=== PATIENT | male | born 1950 | race Caucasian/White ===

== ENCOUNTER 2018-01-27 15:35 | Emergency (ER) | payer OTHER, MEDICARE, BC ==
[2018-01-27 15:55] VITALS: BMI 27.1
[2018-01-27] MEDS ORDERED: ACETAMINOPHEN 1000 MG/100 ML VIAL (NON FORMULARY) IVPB ONE (17:05)
[2018-01-27] MEDS ORDERED: METOCLOPRAMIDE HCL INJECTION 10 MG/2 ML VIAL IVPB ONE (17:05)
[2018-01-27] MEDS ORDERED: SODIUM CHLORIDE 1,000 ML IV STA ×2 (17:05→18:45)
[2018-01-27 17:26] LABS: URINE APPEARANCE CLEAR; URINE BILIRUBIN NEGATIVE (<2.0 mg/dL); URINE COLOR YELLOW; URINE GLUCOSE (UA) NEGATIVE (NEGATIVE); URINE KETONE NEGATIVE (NEGATIVE); URINE LEUK ESTERASE NEGATIVE (NEGATIVE); URINE NITRITE NEGATIVE (NEGATIVE)
[2018-01-27] MEDS ORDERED: METOCLOPRAMIDE HCL INJECTION 10 MG/2 ML VIAL ONE (17:26)
[2018-01-27] MEDS ORDERED: ACETAMINOPHEN INJECTION 100 ML IVPB ONE (17:26)
[2018-01-27 17:43] LABS: URINE PROTEIN 1+ (NEGATIVE)
[2018-01-27 17:45] LABS: URINE MUCUS RARE
--- NOTE | 2018-01-27 17:46 | PDOC ---
History of Present Illness - History of Present Illness Initial Comments: 01/27/18 18:18 "The patient is a year 67 old male with a significant PMH of asthma, HPL ,COPD, CAD, and melanoma who presents to the emergency department with diffuse body aches and for 3 days. Pt reports pain in his bilateral shoulders and neck, as well as his legs. He also reports severe fatigue and subjective fevers at home. He denies N/V/D. Denies CP/SOB. The patient also reports experiencing associated headache with his other symptoms. Denies neck stiffness. Denies thunderclap. He denies any numbness, weakness, or tingling sensation in his extremities. Denies sick contacts. PCP: Dr. Dallas " <Dylan Álvarez - Last Filed: 01/27/18 18:46> <Camila Rizvi - Last Filed: 01/27/18 20:48> - General Chief Complaint: Pain Stated Complaint: PAIN/WEAKNESS Time Seen by Provider: 01/27/18 16:32 Past History - Past Medical History Anemia: No Asthma: Yes Cancer: Yes (melenoma face, l knee, behind r knee) Cardiac Disorders: Yes (r+l bundle branch block) CVA: No COPD: Yes CHF: No Dementia: No Diabetes: No GI Disorders: Yes (reflux) Disorders: No HTN: No Hypercholesterolemia: Yes Liver Disease: No Seizures: No Thyroid Disease: No - Surgical History Abdominal Surgery: No Appendectomy: Yes Cardiac Surgery: Yes (Pacemaker) Cholecystectomy: No Lung Surgery: No Neurologic Surgery: No (laminectomy L5-S1, LAMINECTOMY L4) Orthopedic Surgery: Yes (r knee arthroscopy) - Immunization History Immunization Up to Date: No - Suicide/Smoking/Psychosocial Hx Smoking History: Former smoker Have you smoked in the past 12 months: No If you are a former smoker, when did you quit?: 1996 Information on smoking cessation initiated: No Hx Alcohol Use: Yes (SOCIALLY) Drug/Substance Use Hx: No Substance Use Type: Alcohol Hx Substance Use Treatment: No <Dylan Álvarez - Last Filed: 01/27/18 18:46> <Camila Rizvi - Last Filed: 01/27/18 20:48> - Past Medical History Allergies/Adverse Reactions: Allergies Allergy/AdvReac Type Severity Reaction Status Date / Time Sulfa (Sulfonamide Allergy Rash Verified 01/27/18 15:52 Antibiotics) [Sulfa(Sulfonamide Antibiotics)] Home Medications: Ambulatory Orders Aspirin [ASA -] 81 mg PO DAILY 05/29/12 Tamsulosin HCl 0.4 mg PO HS 05/29/12 Zolpidem Tartrate [Ambien] 10 mg PO HS 05/29/12 oxyCODONE HCL [Roxicodone -] 15 mg PO BID PRN 05/29/12 Atorvastatin Ca [Lipitor] 20 mg PO HS 08/07/12 Celecoxib [Celebrex] 100 mg PO HS 08/07/12 Pregabalin [Lyrica] 100 mg PO HS 08/07/12 Review of Systems - Review of Systems Comments:: 01/27/18 18:25 "GENERAL/CONSTITUTIONAL: (+)fever . No chills. No weakness. HEAD, EYES, EARS, NOSE AND THROAT: No change in vision. No ear pain or discharge. No sore throat. CARDIOVASCULAR: No chest pain, shortness of breath. RESPIRATORY: No cough, wheezing, or hemoptysis. GASTROINTESTINAL: No nausea or vomiting, diarrhea or constipation. GENITOURINARY: No dysuria, frequency, or change in urination. MUSCULOSKELETAL:(+)back pain, neck pain, bodyaches SKIN: No rash NEUROLOGIC: (+)headache. No vertigo, loss of consciousness, or change in strength/sensation. ENDOCRINE: No increased thirst. No abnormal weight change. HEMATOLOGIC/LYMPHATIC: No anemia, easy bleeding, or history of blood clots. ALLERGIC/IMMUNOLOGIC: No hives or skin allergy." <Dylan Álvarez - Last Filed: 01/27/18 18:46> *Physical Exam - Vital Signs Last Vital Signs Temp Pulse Resp BP Pulse Ox 100.2 F H 103 H 20 151/69 97 01/27/18 15:53 01/27/18 15:53 01/27/18 15:53 01/27/18 15:53 01/27/18 15:53 - Physical Exam Comments: 01/27/18 18:26 "GENERAL: Awake, alert, and fully oriented, in no acute distress. HEAD: No signs of trauma EYES: PERRLA, EOMI, sclera anicteric, conjunctiva clear ENT: Auricles normal inspection, hearing grossly normal, nares patent, oropharynx clear without exudates. Moist mucosa NECK: No meningismus, Nontender, no stepoffs, Normal ROM, supple, no lymphadenopathy, JVD, or masses LUNGS: Breath sounds equal, clear to auscultation bilaterally. No wheezes, and no crackles HEART: Regular rate and rhythm, normal S1 and S2, no murmurs, rubs or gallops ABDOMEN: Soft, nontender, normoactive bowel sounds. No guarding, no rebound. No masses EXTREMITIES: Normal range of motion, no edema. No clubbing or cyanosis. No cords, erythema, or tenderness NEUROLOGICAL: Cranial nerves II through XII intact. 5/5 strength and sensation in all extremities, Normal speech, normal gait, normal cerebellar function SKIN: Warm, Dry, normal turgor, no rashes or lesions noted. <Dylan Álvarez - Last Filed: 01/27/18 18:46> - Vital Signs Last Vital Signs Temp Pulse Resp BP Pulse Ox 98.9 F 91 H 20 123/58 95 01/27/18 18:10 01/27/18 18:10 01/27/18 18:10 01/27/18 18:10 01/27/18 18:10 <Camila Rizvi - Last Filed: 01/27/18 20:48> ED Treatment Course - LABORATORY CBC & Chemistry Diagram: 01/27/18 17:10 01/27/18 17:10 - ADDITIONAL ORDERS Additional order review: Laboratory Results 01/27/18 17:10 Urine Color Yellow Urine Appearance Clear Urine pH 5.0 Ur Specific [place] 1.019 Urine Protein 1+ H Urine Glucose (UA) Negative Urine Ketones Negative Urine Blood 1+ H Urine Nitrite Negative Urine Bilirubin Negative Urine Urobilinogen 2.0 Ur Leukocyte Esterase Negative - RADIOLOGY Radiology Studies Ordered: Category Date Time Status CHEST PA & LAT [RAD] Stat Radiology 01/27/18 16:57 Taken - Medications Given in the ED: ED Medications Discontinued Medications Generic Name Dose Route Start Last Admin Trade Name Freq PRN Reason Stop Dose Admin Acetaminophen 1,000 mg 01/27/18 17:05 01/27/18 17:31 Ofirmev Injection - IVPB 01/27/18 17:06 1,000 mg ONCE ONE Administration Metoclopramide HCl 10 mg 01/27/18 17:05 01/27/18 17:31 Reglan Injection - IVPB 01/27/18 17:06 10 mg ONCE ONE Administration <Dylan Álvarez - Last Filed: 01/27/18 18:46> - LABORATORY CBC & Chemistry Diagram: 01/27/18 17:10 01/27/18 17:10 - ADDITIONAL ORDERS Additional order review: Laboratory Results 01/27/18 01/27/18 01/27/18 17:10 17:10 17:10 Sodium 137 Potassium 4.1 Chloride 103 Carbon Dioxide 25 Anion Gap 9 BUN 14 Creatinine 1.0 D Creat Clearance w eGFR > 60 Random Glucose 112 H D Lactic Acid 1.8 Calcium 8.8 Total Bilirubin 1.0 AST 45 H D ALT 52 D Alkaline Phosphatase 67 Creatine Kinase 264 Creatine Kinase Index 0.7 CK-MB (CK-2) 1.966 Troponin I < 0.02 Total Protein 7.2 Albumin 3.7 Urine Color Urine Appearance Urine pH Ur Specific [place] Urine Protein Urine Glucose (UA) Urine Ketones Urine Blood Urine Nitrite Urine Bilirubin Urine Urobilinogen Ur Leukocyte Esterase Urine WBC (Auto) Urine RBC (Auto) Urine Mucus 01/27/18 17:10 Sodium Potassium Chloride Carbon Dioxide Anion Gap BUN Creatinine Creat Clearance w eGFR Random Glucose Lactic Acid Calcium Total Bilirubin AST ALT Alkaline Phosphatase Creatine Kinase Creatine Kinase Index CK-MB (CK-2) Troponin I Total Protein Albumin Urine Color Yellow Urine Appearance Clear Urine pH 5.0 Ur Specific [place] 1.019 Urine Protein 1+ H Urine Glucose (UA) Negative Urine Ketones Negative Urine Blood 1+ H Urine Nitrite Negative Urine Bilirubin Negative Urine Urobilinogen 2.0 Ur Leukocyte Esterase Negative Urine WBC (Auto) <1 Urine RBC (Auto) 5 Urine Mucus Rare 01/27/18 17:10 Influenza Types A,B Antigen - Final Nasopharyngeal Swab - Final 01/27/18 17:10 RBC 5.82 H MCV 84.0 MCHC 33.7 RDW 14.1 MPV 8.4 Neutrophils % 70.1 Lymphocytes % 13.7 Monocytes % 15.1 H Eosinophils % 0.1 D Basophils % 1.0 - Medications Given in the ED: ED Medications Discontinued Medications Generic Name Dose Route Start Last Admin Trade Name Freq PRN Reason Stop Dose Admin Acetaminophen 1,000 mg 01/27/18 17:05 01/27/18 17:31 Ofirmev Injection - IVPB 01/27/18 17:06 1,000 mg ONCE ONE Administration Sodium Chloride 1,000 mls @ 1,000 mls/hr 01/27/18 17:05 01/27/18 17:30 Normal Saline - IV 01/27/18 18:04 1,000 mls/hr ASDIR STA Administration Sodium Chloride 1,000 mls @ 1,000 mls/hr 01/27/18 18:45 01/27/18 18:53 Normal Saline - IV 01/27/18 19:44 1,000 mls/hr ASDIR STA Administration Ketorolac Tromethamine 15 mg 01/27/18 18:38 01/27/18 18:44 Toradol Injection - IVPUSH 01/27/18 18:39 15 mg ONCE ONE Administration Metoclopramide HCl 10 mg 01/27/18 17:05 01/27/18 17:31 Reglan Injection - IVPB 01/27/18 17:06 10 mg ONCE ONE Administration <Camila Rizvi - Last Filed: 01/27/18 20:48> Medical Decision Making - Medical Decision Making 01/27/18 17:46 67 M with fevers and bodyaches x 3 days. Likely viral syndrome vs influenza. Will r/o PNA and UTI, though less likely as pt with no clinical signs of either. Pt awake, alert, with no meningismus on exam. - Labs, cultures - CXR, UA - IVF, tylenol, reglan 01/27/18 18:27 Labs, UA, flu swab negative CXR negative on my read 01/27/18 18:37 Pt reassessed - now states he feels much better. His headache has improved but not resolved completely, and his bodyaches are gone. Vitals now wnl. Pt signed out to oncoming attending at 7PM, pending CT head and re-evaluation. <Dylan Álvarez - Last Filed: 01/27/18 18:46> - Medical Decision Making 01/27/18 20:25 Patient Name: POLLO AVALOS THIS IS A PRELIMINARY REPORT FROM [facility] [employer] [facility] DATE OF SERVICE: 2018-01-27 19:24:03 IMAGES: 149 EXAM: CT head without contrast HISTORY: Headache COMPARISON: None. FINDINGS: There is moderate diffuse cortical atrophy present. There is no acute infarction. There is no hemorrhage. There is no mass lesion. There is no skull fracture is seen. Visualized portions of the paranasal sinuses are essentially clear. 01/27/18 20:26 I received pt on signout. Pt feels great. Came with a fever and headache. Resolved with a dose of antipyretic. Labs normal.CT head and chest normal. Flu culture normal. Pt is ready for discharge. Return for worsening headache or neck stiffness. <Camila Rizvi - Last Filed: 01/27/18 20:48> *DC/Admit/Observation/Transfer <Dylan Álvarez - Last Filed: 01/27/18 18:46> - Discharge Dispostion Decision to Admit order: No <Camila Rizvi - Last Filed: 01/27/18 20:48> Diagnosis at time of Disposition: Viral illness - Discharge Dispostion Disposition: HOME Condition at time of disposition: Improved - Referrals Referrals: Anmol Dallas MD [Primary Care Provider] - - Patient Instructions Printed Discharge Instructions: Common Cold
[2018-01-27 17:47] LABS: EOS % 0.1 % (0-4.5); HEMATOCRIT 48.9 % (35.4-49); HEMOGLOBIN 16.5 GM/dL (11.7-16.9); LYMPH % 13.7 % (8-40); MCH 28.4 pg (25.7-33.7); MCHC 33.7 g/dl (32.0-35.9); MEAN PLT VOLUME 8.4 fl (7.5-11.1); MONO % 15.1 % (3.8-10.2); NEUT % 70.1 % (42.8-82.8); PLATELET COUNT 124 K/MM3 (134-434); RBC 5.82 M/mm3 (4.00-5.60); RDW 14.1 % (11.9-15.9); WHITE BLOOD COUNT 5.7 K/mm3 (4.0-10.0)
[2018-01-27 18:08] LABS: ALBUMIN 3.7 g/dl (3.4-5.0); ANION GAP 9 (8-16); BLOOD UREA NITROGEN 14 mg/dL (7-18); CALCIUM 8.8 mg/dL (8.5-10.1); CHLORIDE 103 mmol/L (98-107); CO2 25 mmol/L (21-32); GLUCOSE,RANDOM 112 mg/dL (74-106); SODIUM 137 mmol/L (136-145)
[2018-01-27 18:11] VITALS: BP 123/58; PULSE 91; TEMP 98.9
[2018-01-27 18:11] LABS: ALK PHOS 67 U/L (45-117); SGPT/ALT 52 U/L (12-78); TOT PROT 7.2 g/dl (6.4-8.2)
[2018-01-27 18:19] LABS: POTASSIUM 4.1 mmol/L (3.5-5.1); SGOT/AST 45 U/L (15-37)
[2018-01-27] MEDS ORDERED: KETOROLAC TROMETHAMINE 30 MG/1 ML VIAL IVPUSH ONE (18:38)
[2018-01-27] MEDS ORDERED: KETOROLAC TROMETHAMINE 15 MG/ML VIAL ONE (18:40)
--- NOTE | 2018-01-28 08:49 | EKG ---
Test Reason : Blood Pressure : / mmHG Vent. Rate : 101 BPM Atrial Rate : 101 BPM P-R Int : 196 ms QRS Dur : 138 ms QT Int : 344 ms P-R-T Axes : 051 -67 098 degrees QTc Int : 446 ms SINUS TACHYCARDIA LEFT AXIS DEVIATION LEFT BUNDLE BRANCH BLOCK ABNORMAL ECG WHEN COMPARED WITH ECG OF 01-AUG-2013 15:02, NO SIGNIFICANT CHANGE WAS FOUND Confirmed by HIPOLITO HENRY MD ([id number]) on 01/28/2018 8:48:54 AM Referred By: Confirmed By:HIPOLITO HENRY MD
== END 2018-01-27 21:16 | disposition home or self-care (01) ==
LOC: JER 15:35
PROC: 3E0333Z Introduction of Anti-inflammatory into Peripheral Vein, Percutaneous Approach (ICD-10-PCS; principal; 2018-01-27)
PROC: 3E033NZ Introduction of Analgesics, Hypnotics, Sedatives into Peripheral Vein, Percutaneous Approach (ICD-10-PCS; 2018-01-27)
PROC: 3E033GC Introduction of Other Therapeutic Substance into Peripheral Vein, Percutaneous Approach (ICD-10-PCS; 2018-01-27)
PROC: 3E0337Z Introduction of Electrolytic and Water Balance Substance into Peripheral Vein, Percutaneous Approach (ICD-10-PCS; 2018-01-27)
DX: B34.9 Viral infection, unspecified (principal); E78.5 Hyperlipidemia, unspecified; I25.10 Atherosclerotic heart disease of native coronary artery without angina pectoris; J45.909 Unspecified asthma, uncomplicated; I45.2 Bifascicular block; K21.9 Gastro-esophageal reflux disease without esophagitis; Z95.0 Presence of cardiac pacemaker; Z87.891 Personal history of nicotine dependence; Z88.2 Allergy status to sulfonamides; Z79.82 Long term (current) use of aspirin; Z85.820 Personal history of malignant melanoma of skin
CPT/HCPCS: 36415; 70450-TC; 71046-TC-FY; 80053; 81003; 81015; 82550; 82553; 83605; 84484; 85025; 87040; 87086; 87804; 93005; 93010; 96361; 96374; 96375; 99283-25; J0131; J7030

== ENCOUNTER 2019-01-18 13:58 | Emergency (ER) | payer OTHER, BC, MEDICARE ==
[2019-01-18 14:19] VITALS: TEMP 97.8; BMI 28.2
[2019-01-18] MEDS ORDERED: ACETAMINOPHEN 1000 MG/100 ML VIAL (NON FORMULARY) IVPB ONE (14:51)
[2019-01-18] MEDS ORDERED: ACETAMINOPHEN INJECTION 100 ML IVPB ONE (14:56)
--- NOTE | 2019-01-18 15:03 | PDOC ---
History of Present Illness - General Chief Complaint: Headache Stated Complaint: WEAKNESS Time Seen by Provider: 01/18/19 14:27 - History of Present Illness Initial Comments: the pt is a 68M w/ a history of previous RBBB & LBBB s/p pacemaker, COPD, BPH, and PUD who presents for evaluation of a SORTO. He states it started this morning at approximately 0500. It is frontal, throbbing, non-radiating, associated with gait instability (w/o fall), and not alleviated by anything he can identify. He states he does not have HAs frequently and has not tried taking anything for this SORTO. He endorses mild SOB which is consistent with his COPD but he states that it does not feel overly exacerbated at this time. He states he currently has said SORTO and continues to feel as though his gait is unstable. Denies changes in vision, chest pain, changes in sensation/strength. Denies abdominal pain, N/V/C/D, dysuria, hematuria, or blood in his stool 01/18/19 14:58 NIH Stroke Scale - Last Known Well Date/Time & Onset Date Last Known Well: 01/17/19 - Initial Evaluation Level of consciousness: Alert Ask patient the month and their age: Answers both correctly Ask patient to open & close eyes; make fist and let go: Obeys both correctly Best gaze (horizontal eye movement): Normal Visual field testing: No visual field loss Facial paresis (Show teeth/raise eyebrows/close eyes tight): Normal symmetrical movement Motor Function: Left Arm: Normal Motor Function: Right Arm: Normal (extends arm 90 (or 45) degrees for 10 seconds without drift Motor Function: Left Leg: Normal (extends leg 30 degrees for 5 seconds without drift) Motor Function: Right Leg: Normal (extends leg 30 degrees for 5 seconds without drift) Limb Ataxia: No ataxia Sensory(Use pinprick test arms,legs,trunk,face/side to side): Normal Best language (Describe picture, name items, read sentences): No Aphasia Dysarthria (read several words): Normal articulation Extinction and Inattention: No abnormality - Total Score NIH Stroke Scale Score: 0 Past History - Past Medical History Allergies/Adverse Reactions: Allergies Allergy/AdvReac Type Severity Reaction Status Date / Time Sulfa (Sulfonamide Allergy Rash Verified 01/18/19 14:13 Antibiotics) [Sulfa(Sulfonamide Antibiotics)] Home Medications: Ambulatory Orders Tamsulosin HCl 0.4 mg PO HS 05/29/12 oxyCODONE HCL [Roxicodone -] 5 mg PO BID PRN 05/29/12 Albuterol 2.5/Ipratropium 0.5 [Duoneb -] 1 neb NEB BID 01/18/19 Lansoprazole [Prevacid -] 30 mg PO DAILY 01/18/19 Metoprolol Tartrate [Lopressor] 50 mg PO DAILY 01/18/19 Telmisartan 20 mg PO DAILY 01/18/19 Anemia: No Asthma: Yes Cancer: Yes (melenoma face, l knee, behind r knee) Cardiac Disorders: Yes (r+l bundle branch block) CVA: No COPD: Yes CHF: No Dementia: No Diabetes: No GI Disorders: Yes (reflux) Disorders: No HTN: No Hypercholesterolemia: Yes Liver Disease: No Seizures: No Thyroid Disease: No - Surgical History Abdominal Surgery: No Appendectomy: Yes Cardiac Surgery: Yes (Pacemaker) Cholecystectomy: No Lung Surgery: No Neurologic Surgery: No (laminectomy L5-S1, LAMINECTOMY L4) Orthopedic Surgery: Yes (r knee arthroscopy) - Immunization History Immunization Up to Date: No - Suicide/Smoking/Psychosocial Hx Smoking History: Former smoker Have you smoked in the past 12 months: No If you are a former smoker, when did you quit?: 25 YEARS AGO Information on smoking cessation initiated: No Hx Alcohol Use: No Drug/Substance Use Hx: No Substance Use Type: Alcohol Hx Substance Use Treatment: No Review of Systems - Review of Systems Able to Perform ROS?: Yes Comments:: GENERAL/CONSTITUTIONAL: No fever or chills. No weakness HEAD, EYES, EARS, NOSE AND THROAT: No change in vision. No ear pain or discharge. No sore throat CARDIOVASCULAR: No chest pain RESPIRATORY: Denies cough, hemoptysis GASTROINTESTINAL: No nausea, vomiting, diarrhea or constipation GENITOURINARY: No dysuria, frequency, or change in urination MUSCULOSKELETAL: No joint or muscle swelling or pain. No neck or back pain SKIN: No rash NEUROLOGIC: No vertigo, loss of consciousness, or change in strength/sensation ENDOCRINE: No increased thirst. No abnormal weight change HEMATOLOGIC/LYMPHATIC: No anemia, easy bleeding, or history of blood clots ALLERGIC/IMMUNOLOGIC: No hives or skin allergy 01/18/19 15:05 Is the patient limited Turkmen proficient: No *Physical Exam - Vital Signs Last Vital Signs Temp Pulse Resp BP Pulse Ox 97.8 F 86 20 112/67 97 01/18/19 14:13 01/18/19 14:13 01/18/19 14:13 01/18/19 14:13 01/18/19 14:13 - Physical Exam Comments: GENERAL: Awake, alert, and oriented to person/place/time, in no acute distress HEAD: No signs of trauma, normocephalic, atraumatic EYES: PERRLA, EOMI, sclera anicteric, conjunctiva clear ENT: Hearing grossly normal, nares patent, oropharynx clear without exudates. No uvular deviation. Moist mucosa LUNGS: No distress, speaks full sentences, clear to auscultation bilaterally HEART: Regular rate and rhythm, normal S1 and S2, no murmurs appreciated, peripheral pulses normal and equal bilaterally ABDOMEN: Soft, nontender, normoactive bowel sounds. No guarding, no rebound EXTREMITIES: Normal inspection, Normal range of motion, no edema. No clubbing or cyanosis NEUROLOGICAL: Cranial nerves II through XII grossly intact. Normal speech, normal gait, no focal sensorimotor deficits SKIN: Warm, Dry 01/18/19 15:06 ED Treatment Course - LABORATORY CBC & Chemistry Diagram: 01/18/19 14:47 01/18/19 14:47 - RADIOLOGY Radiology Studies Ordered: Category Date Time Status HEAD CT WITHOUT CONTRAST [CT] Stat CT Scan 01/18/19 14:50 Ordered CHEST X-RAY PORTABLE* [RAD] Stat Radiology 01/18/19 14:51 Ordered Medical Decision Making - Medical Decision Making The pt is a 68M who presents for evaluation of SORTO and feelings of gait instability w/o fall Ddx includes CVA, ACS, lyte abn, infection, anemia; consider but not likely 2/2 ingestion ED Course CMP, CBC, Coags, T/S ECG CXR CT head Ofirmev for pain 01/18/19 15:06 CT Head w/o Contrast 01/18/19 IMPRESSION: -No significant interval change. -Moderate atrophy and probable minimal periventricular chronic microvascular ischemic disease changes are present. -No CT evidence of acute intracranial pathology is identified. -Correlate clinically to determine further evaluation. 01/18/19 16:14 No leukocytosis No anemia Lytes wnl No SUDHIR LFTs unremarkable Trop I neg Pt feels improved at this time and ambulating with a stable gait. Plan for D/C w / PCP f/u. Discharge instructions and return precautions given. Pt in agreement and verbalized understanding. Dispo: home *DC/Admit/Observation/Transfer Diagnosis at time of Disposition: Pacemaker Headache Qualifiers: Headache type: unspecified Headache chronicity pattern: unspecified pattern Intractability: not intractable Qualified Code(s): R51 - Headache COPD (chronic obstructive pulmonary disease) Qualifiers: COPD type: unspecified COPD Qualified Code(s): J44.9 - Chronic obstructive pulmonary disease, unspecified - Discharge Dispostion Disposition: HOME Condition at time of disposition: Stable Decision to Admit order: No - Referrals Referrals: Anmol Dallas MD [Primary Care Provider] - Zi Briones MD [Staff Physician] - Ranjan Parkre DO [Staff Physician] - - Patient Instructions Printed Discharge Instructions: DI for Headache Additional Instructions: You were seen in the Emergency Department for evaluation of a headache. Your labs were unremarkable and your CT head was negative for acute change or bleed. Review the handout provided at discharge. For your headache you may take Tylenol 650mg every 6 hours as needed. Return to the Emergency Department if you develop fevers/chills, worsening symptoms, vision changes, dizziness, changes in sensation/strength, chest pain, trouble breathing, nausea/vomiting, or any new/concerning symptoms. Maintain your follow up with your primary care provider and an Neurology referral was provided. - Post Discharge Activity
[2019-01-18 15:12] LABS: BASO % 0.6 % (0-2.0); EOS % 1.6 % (0-4.5); HEMATOCRIT 48.4 % (35.4-49); HEMOGLOBIN 16.1 GM/dL (11.7-16.9); LYMPH % 26.8 % (8-40); MCH 28.7 pg (25.7-33.7); MCHC 33.3 g/dl (32.0-35.9); MEAN CELL VOLUME 86.3 fl (80-96); MEAN PLT VOLUME 8.5 fl (7.5-11.1); MONO % 10.8 % (3.8-10.2); NEUT % 60.2 % (42.8-82.8); PLATELET COUNT 167 K/MM3 (134-434); RBC 5.61 M/mm3 (4.00-5.60); RDW 13.8 % (11.9-15.9); WHITE BLOOD COUNT 6.5 K/mm3 (4.0-10.0)
[2019-01-18 15:43] LABS: INR 1.11 (0.83-1.09); PROTHROMBIN TIME (PATIENT) 13.1 SEC (9.7-13.0)
[2019-01-18 15:45] LABS: ACTIVATED PTT 30.9 SECONDS (25.2-36.5)
--- NOTE | 2019-01-18 16:04 | PDOC ---
Documentation entered by Yaneth Staley SCRIBE, acting as scribe for Ashley Arellano MD. Ashley Arellano MD: This documentation has been prepared by the lidaibe, Yaneth Staley SCRIBE, under my direction and personally reviewed by me in its entirety. I confirm that the documentation accurately reflects all work, treatment, procedures, and medical decision making performed by me. Attending Attestation - Resident Resident Name: MemoshahnazJonathan - ED Attending Attestation I have performed the following: I have examined & evaluated the patient, The case was reviewed & discussed with the resident, I agree w/resident's findings & plan, Exceptions are as noted - HPI HPI: 01/18/19 15:21 The patient is a 68-year-old male with a past medical history significant for LBBB and RBBB s/p Pacemaker, COPD, and PUD present to the emergency department with a headache. The patient reports he woke up at 5:00 am today with a throbbing, frontal headache. The patient states he went back to sleep but woke up a bit later with the same headache. The patient reports the headache is constant in nature, now associated with an unsteady gait. The patient reports an additional complaint of mild shortness of breath, similar to prior COPD episodes. The patient reports he used to be on ASA, however for a procedure he was discontinued the ASA. The patient reports he didnt start back up the medication yet. Denies taking any medication. Denies chest pain, nausea, vomiting, or diarrhea. Denies vision changes. Allergies: Sulfa. Surgical history: Appendectomy, Pacemaker, Laminectomy L5-S1, R. knee arthroscopy. Social history: Former smoker, reports the use of alcohol. Denies the use of recreational drugs. PCP: Dr. Patti Dallas. - Physicial Exam PE: GENERAL: Awake, alert, and fully oriented, in no acute distress HEAD: No signs of trauma EYES: PERRLA, EOMI, sclera anicteric, conjunctiva clear ENT: Auricles normal inspection, hearing grossly normal, nares patent, oropharynx clear without exudates. Moist mucosa NECK: Normal ROM, supple, no lymphadenopathy, JVD, or masses LUNGS: Breath sounds equal, clear to auscultation bilaterally. No wheezes, and no crackles HEART: Regular rate and rhythm, normal S1 and S2, no murmurs, rubs or gallops ABDOMEN: Soft, nontender, normoactive bowel sounds. No guarding, no rebound. No masses EXTREMITIES: Normal range of motion, no edema. No clubbing or cyanosis. No cords, erythema, or tenderness NEUROLOGICAL: Cranial nerves II through XII grossly intact. Normal speech, normal gait. Motor and sensation intact SKIN: Warm, Dry, normal turgor, no rashes or lesions noted. - Medical Decision Making Pt states his gait was unsteady when he woke up at 5:30am, but it improved after he slept 4 more hours. Headache improved in ED with IV tylenol. No focal neuro deficits. DC home.
[2019-01-18 16:18] LABS: ALBUMIN 3.7 g/dl (3.4-5.0); ALK PHOS 68 U/L (45-117); ANION GAP 8 MMOL/L (8-16); BILIRUBIN,TOTAL 0.6 mg/dL (0.2-1); BLOOD UREA NITROGEN 17 mg/dL (7-18); CALCIUM 9.3 mg/dL (8.5-10.1); CHLORIDE 107 mmol/L (98-107); CO2 24 mmol/L (21-32); CREATININE 0.9 mg/dL (0.55-1.3); GLUCOSE,RANDOM 130 mg/dL (74-106); POTASSIUM 4.2 mmol/L (3.5-5.1); SGOT/AST 15 U/L (15-37); SGPT/ALT 35 U/L (13-61); SODIUM 140 mmol/L (136-145); TOT PROT 6.9 g/dl (6.4-8.2)
[2019-01-18 17:33] VITALS: BP 113/60; PULSE 71
--- NOTE | 2019-01-19 12:49 | EKG ---
Test Reason : Blood Pressure : / mmHG Vent. Rate : 074 BPM Atrial Rate : 074 BPM P-R Int : 230 ms QRS Dur : 152 ms QT Int : 392 ms P-R-T Axes : 046 -67 082 degrees QTc Int : 435 ms SINUS RHYTHM WITH 1ST DEGREE A-V BLOCK LEFT AXIS DEVIATION LEFT BUNDLE BRANCH BLOCK ABNORMAL ECG WHEN COMPARED WITH ECG OF 27-JAN-2018 16:25, [place] INTERVAL HAS INCREASED T WAVE INVERSION LESS EVIDENT IN LATERAL LEADS Confirmed by HIPOLITO HENRY MD ([id number]) on 01/19/2019 12:49:44 PM Referred By: Confirmed By:HIPOLITO HENRY MD
== END 2019-01-18 17:33 | disposition home or self-care (01) ==
LOC: JER 13:58
PROC: 3E033NZ Introduction of Analgesics, Hypnotics, Sedatives into Peripheral Vein, Percutaneous Approach (ICD-10-PCS; principal; 2019-01-18)
DX: R51 Headache (principal); J44.9 Chronic obstructive pulmonary disease, unspecified; Z86.79 Personal history of other diseases of the circulatory system; Z95.0 Presence of cardiac pacemaker; K21.9 Gastro-esophageal reflux disease without esophagitis; E78.00 Pure hypercholesterolemia, unspecified
CPT/HCPCS: 36415; 70450-TC; 71045-TC-FY; 80053; 84484; 85025; 85610; 85730; 86850; 86900; 86901; 93005; 93010; 96374; 99283-25; J0131

== ENCOUNTER → 2021-11-09 | Day surgery (SDC) | payer OTHER, MEDICARE ==
[2021-11-09 12:51] LABS: BASO % 0.6 % (0-2.0); EOS % 4.6 % (0-4.5); HEMATOCRIT 45.6 % (35.4-49); LYMPH % 33.9 % (8-40); MCHC 35.1 g/dl (32.0-35.9); MEAN CELL VOLUME 85.4 fl (80-96); MEAN PLT VOLUME 7.7 fl (7.5-11.1); MONO % 9.1 % (3.8-10.2); NEUT % 51.8 % (42.8-82.8); PLATELET COUNT 170 10^3/uL (134-434); RBC 5.34 M/mm3 (4.00-5.60); RDW 13.6 % (11.9-15.9); WHITE BLOOD COUNT 5.5 K/mm3 (4.0-10.0)
[2021-11-09 13:27] LABS: INR 1.15 (0.83-1.09); PROTHROMBIN TIME (PATIENT) 13.2 SEC (9.7-13.0)
== END | disposition home or self-care (01) ==
LOC: JRADIR 11:48
PROVIDERS: ATTEND Orthopaedic Surgery
PROC: BP09YZZ Plain Radiography of Left Shoulder using Other Contrast (ICD-10-PCS; principal; 2021-11-09)
PROC: BW1JYZZ Fluoroscopy of Upper Extremity using Other Contrast (ICD-10-PCS; 2021-11-09)
PROC: BP29YZZ Computerized Tomography (CT Scan) of Left Shoulder using Other Contrast (ICD-10-PCS; 2021-11-09)
DX: M25.512 Pain in left shoulder (principal)
CPT/HCPCS: 23350; 36415; 73040-TC-FY; 73200-TC-RT; 85025; 85610

== ENCOUNTER 2023-03-12 15:32 | Inpatient (IN) | payer OTHER, MEDICARE ==
[2023-03-12 15:51] VITALS: RESP 20
[2023-03-12] MEDS ORDERED: ACETAMINOPHEN 1000 MG/100 ML BAG IVPB ONE (16:13)
[2023-03-12] MEDS ORDERED: NITROGLYCERIN SUBLINGUAL 1/150 0.4 MG TAB SL ONE (16:23)
[2023-03-12] MEDS ORDERED: ACETAMINOPHEN INJECTION 100 ML IVPB ONE (16:37)
[2023-03-12] MEDS ORDERED: NITROGLYCERIN SUBLINGUAL 1/150 0.4 MG TAB ONE (16:37)
[2023-03-12 17:33] LABS: BASO % 0.7 % (0-2.0); EOS % 3.4 % (0-4.5); HEMATOCRIT 50.7 % (35.4-49); HEMOGLOBIN 17.2 GM/dL (11.7-16.9); LYMPH % 24.9 % (8-40); MCH 28.5 pg (25.7-33.7); MEAN CELL VOLUME 83.8 fl (80-96); MEAN PLT VOLUME 7.8 fl (7.5-11.1); MONO % 9.2 % (3.8-10.2); NEUT % 61.8 % (42.8-82.8); PLATELET COUNT 195 10^3/uL (134-434); RBC 6.05 M/mm3 (4.00-5.60); WHITE BLOOD COUNT 7.8 K/mm3 (4.0-10.0)
[2023-03-12 17:38] LABS: INR 1.1 (0.83-1.09); PROTHROMBIN TIME (PATIENT) 12.8 SEC (9.7-13.0)
[2023-03-12 17:41] LABS: ACTIVATED PTT 29.6 SECONDS (25.2-36.5)
[2023-03-12 17:49] LABS: POTASSIUM 4.4 mmol/L (3.5-5.1)
[2023-03-12 17:51] LABS: CALCIUM 9.3 mg/dL (8.5-10.1)
[2023-03-12 17:52] LABS: ALBUMIN 3.6 g/dl (3.4-5.0); BLOOD UREA NITROGEN 12.5 mg/dL (7-18)
[2023-03-12 17:55] LABS: CREATININE 0.8 mg/dL (0.55-1.3)
[2023-03-12 17:56] LABS: BILIRUBIN,TOTAL 0.4 mg/dL (0.2-1)
[2023-03-12 17:57] LABS: TOT PROT 7.2 g/dl (6.4-8.2)
[2023-03-12] MEDS ORDERED: HEPARIN NA (PORCINE) 5,000 UNITS/ML 1ML VIAL IVPUSH PRN (20:46)
[2023-03-12] MEDS ORDERED: HEPARIN NA (PORCINE) 5,000 UNITS/ML 1ML VIAL IVPUSH STA (20:46)
[2023-03-12] MEDS ORDERED: ASPIRIN 81 MG CHEWABLE TABLETS PO ONE (20:47)
[2023-03-12] MEDS ORDERED: CLOPIDOGREL BISULFATE 300 MG TABLET PO ONE (20:48)
[2023-03-12] MEDS ORDERED: CLOPIDOGREL BISULFATE 300 MG TABLET ONE (21:09)
[2023-03-12] MEDS ORDERED: ASPIRIN 81 MG CHEWABLE TABLETS ONE (21:10)
[2023-03-12] MEDS ORDERED: HEPARIN INFUSION - 25,000 UNITS/500 ML INFUS.BAG IVPB ONE (21:10)
[2023-03-12] MEDS ORDERED: HEPARIN NA (PORCINE) 5,000 UNITS/ML 1ML VIAL ONE (21:10)
[2023-03-12] MEDS: HEPARIN - 25,000 UNIT in SODIUM CHLORIDE 495 ML IV SCH (21:25)
[2023-03-12] MEDS ORDERED: oxyCODONE HCL 5 MG TABLET PO PRN (21:57)
[2023-03-12] MEDS ORDERED: LIDOCAINE PATCH REMOVAL MC SCH (22:00)
[2023-03-12] MEDS ORDERED: ZOLPIDEM TARTRATE 5 MG TABLET PO PRN (22:00)
[2023-03-12] MEDS ORDERED: ATORVASTATIN CA 20 MG TABLET (FP) PO SCH (22:00)
[2023-03-12] MEDS ORDERED: TAMSULOSIN HCL 0.4 MG CAP PO SCH (22:00)
[2023-03-12] MEDS ORDERED: LACTATED RINGERS SOLUTION 1,000 ML/1,000 ML INFUS.BAG IV SCH (23:15)
[2023-03-13] MEDS ORDERED: ATORVASTATIN CA 20 MG TABLET (FP) ONE (00:10)
[2023-03-13] MEDS ORDERED: PREGABALIN 100 MG CAPSULE ONE (00:10)
[2023-03-13 00:11] LABS: POTASSIUM 4.1 mmol/L (3.5-5.1)
[2023-03-13] MEDS ORDERED: LIDOCAINE 5% TOPICAL PATCH ONE (00:11)
[2023-03-13] MEDS ORDERED: TAMSULOSIN HCL 0.4 MG CAP ONE (00:11)
[2023-03-13 00:13] LABS: CALCIUM 9.2 mg/dL (8.5-10.1)
[2023-03-13 00:14] LABS: BLOOD UREA NITROGEN 12.1 mg/dL (7-18); MAGNESIUM 2.1 mg/dL (1.8-2.4)
[2023-03-13 00:17] LABS: CREATININE 0.8 mg/dL (0.55-1.3)
[2023-03-13] MEDS: PREGABALIN 100 MG CAPSULE PO SCH ×2 (00:24→09:56)
[2023-03-13] MEDS ORDERED: ZOLPIDEM TARTRATE 5 MG TABLET ONE (00:25)
[2023-03-13 01:32] VITALS: BMI 28.8
[2023-03-13] MEDS ORDERED: NITROGLYCERIN SUBLINGUAL 1/150 0.4 MG TAB SL PRN (06:59)
[2023-03-13 08:48] LABS: HEMATOCRIT 50.7 % (35.4-49); HEMOGLOBIN 17.4 GM/dL (11.7-16.9); MCH 29.4 pg (25.7-33.7); MCHC 34.4 g/dl (32.0-35.9); MEAN CELL VOLUME 85.4 fl (80-96); MEAN PLT VOLUME 8.3 fl (7.5-11.1); RBC 5.93 M/mm3 (4.00-5.60); RDW 13.4 % (11.9-15.9); WHITE BLOOD COUNT 7.9 K/mm3 (4.0-10.0)
[2023-03-13 08:50] LABS: PLATELET COUNT 125 10^3/uL (134-434)
[2023-03-13 08:52] LABS: INR 1.11 (0.83-1.09); PROTHROMBIN TIME (PATIENT) 12.9 SEC (9.7-13.0)
[2023-03-13 08:55] LABS: ACTIVATED PTT 28.9 SECONDS (25.2-36.5)
[2023-03-13 09:05] LABS: POTASSIUM 3.9 mmol/L (3.5-5.1)
[2023-03-13 09:12] LABS: CALCIUM 8.8 mg/dL (8.5-10.1)
[2023-03-13 09:13] LABS: ALBUMIN 3.6 g/dl (3.4-5.0); BLOOD UREA NITROGEN 10.6 mg/dL (7-18)
[2023-03-13 09:16] LABS: CREATININE 0.7 mg/dL (0.55-1.3)
[2023-03-13 09:18] LABS: BILIRUBIN,TOTAL 0.7 mg/dL (0.2-1); TOT PROT 6.9 g/dl (6.4-8.2)
[2023-03-13] MEDS: HEPARIN - 25,000 UNIT in SODIUM CHLORIDE 495 ML IV SCH (10:00)
[2023-03-13] MEDS ORDERED: LIDOCAINE 5% TOPICAL PATCH TP SCH (10:00)
[2023-03-13] MEDS ORDERED: METOPROLOL TARTRATE 50 MG TABLET (FP) PO SCH (10:00)
[2023-03-13] MEDS ORDERED: ASPIRIN COATED 81 MG TABLET.EC PO SCH (10:00)
[2023-03-13] MEDS ORDERED: VALSARTAN 40 MG TABLET PO SCH (10:00)
[2023-03-13] MEDS ORDERED: CLOPIDOGREL BISULFATE 75 MG TABLET (FP) PO SCH (10:00)
[2023-03-13 13:40] VITALS: TEMP 97.2
[2023-03-13 13:45] VITALS: BP 124/76; PULSE 64
== END 2023-03-13 14:20 | disposition short-term general hospital (02) | DRG 282 ==
LOC: JER 15:32 → JERBED 21:34 → J4W 03-13 01:02
PROVIDERS: ADMIT Internal Medicine; ATTEND Internal Medicine
DX: I21.4 Non-ST elevation (NSTEMI) myocardial infarction (principal); I10 Essential (primary) hypertension; E78.5 Hyperlipidemia, unspecified; G47.33 Obstructive sleep apnea (adult) (pediatric); I44.0 Atrioventricular block, first degree; Z95.0 Presence of cardiac pacemaker; J44.9 Chronic obstructive pulmonary disease, unspecified
CPT/HCPCS: 36415; 71045-TC-FY; 80048; 80053; 80061; 83036; 83735; 84443; 84484; 85025; 85027; 85610; 85730; 87635; 93005; 93010; 93306-TC; 99285-25; J1644

== ENCOUNTER 2024-08-19 04:08 | Day surgery (SDC) | payer OTHER, MEDICARE ==
[2024-08-12 15:05] VITALS: BMI 27.4
[2024-08-19] MEDS ORDERED: PROPOFOL 20 ML ONE (07:42)
[2024-08-19] MEDS ORDERED: MIDAZOLAM HCL 2 MG/2 ML SINGLE DOSE VIAL ONE (07:42)
[2024-08-19] MEDS ORDERED: SUCCINYLCHOLINE CHLORIDE 200 MG/10 ML SYRINGE ONE (07:42)
[2024-08-19] MEDS: ceFAZolin SODIUM 1 GM VIAL IVPB ONE (07:55)
[2024-08-19] MEDS ORDERED: DEXTROSE 5%-0.45% SALINE 1,000 ML IV SCH (08:45)
[2024-08-19] MEDS ORDERED: LACTATED RINGERS SOLUTION 1,000 ML IV SCH (09:00)
[2024-08-19 10:35] VITALS: RESP 18
[2024-08-19 10:44] VITALS: TEMP 97.8
[2024-08-19 12:07] VITALS: BP 127/75; PULSE 70
[2024-08-25 16:08] LABS: SIZE 11x6 mm (.); WEIGHT 2624 mg (.)
== END 2024-08-19 11:25 | disposition home or self-care (01) ==
LOC: JASU-SURG 04:08
PROVIDERS: ATTEND Urology
PROC: 0TCB8ZZ Extirpation of Matter from Bladder, Via Natural or Artificial Opening Endoscopic (ICD-10-PCS; principal; 2024-08-19 07:30)
PROC: 0VB08ZZ Excision of Prostate, Via Natural or Artificial Opening Endoscopic (ICD-10-PCS; 2024-08-19 07:30)
DX: N40.0 Benign prostatic hyperplasia without lower urinary tract symptoms (principal); N21.0 Calculus in bladder
CPT/HCPCS: 36415; 82360; 88305-TC; 88307-TC; 94760; C1758